=== PATIENT | male | born 1960 | race Caucasian/White ===

== ENCOUNTER 2019-10-09 23:38 | Emergency (ER) | payer OTHER ==
[~2019-10-09] VITALS: Ht 160 cm; Wt 65.8 kg
[2019-10-10] MEDS ORDERED: KEFLEX500 MG PO (03:56)
== END 2019-10-10 03:58 ==
LOC: ER 23:38
DX: S06.2X1A Diffuse traumatic brain injury with loss of consciousness of 30 minutes or less, initial encounter (principal); S60.221A Contusion of right hand, initial encounter; S01.02XA Laceration with foreign body of scalp, initial encounter; W01.118A Fall on same level from slipping, tripping and stumbling with subsequent striking against other sharp object, initial encounter; Y93.89 Activity, other specified; Y92.098 Other place in other non-institutional residence as the place of occurrence of the external cause; Y99.8 Other external cause status

== ENCOUNTER 2019-10-22 10:06 | Emergency (ER) | payer OTHER ==
[~2019-10-22] VITALS: Ht 160 cm; Wt 68.0 kg
[~2019-10-22 10:06] MED LIST: KEFLEX500 MG PO
== END 2019-10-22 10:42 ==
LOC: ER 10:06
DX: Z48.02 Encounter for removal of sutures (principal)